=== PATIENT | male | born 1955 | race Caucasian/White ===

== ENCOUNTER 2016-03-24 16:32 | Emergency (ER) | payer BC ==
[2016-03-24 17:11] VITALS: BP 146/88
[2016-03-24] MEDS ORDERED: Ondansetron ODT TAB* 4 MG PO ONE (17:24)
--- NOTE | 2016-03-24 17:46 | UC ---
Abdominal Pain Male HPI - HPI Summary HPI Summary: Pt c/o sudden onset of abdominal discomfort, nausea vomiting, and loose stools X 1 day. reports that last emesis was at 0200 today. Reports loose stools X 5 times - History of Current Complaint Chief Complaint: UCGI Stated Complaint: STOMACH ISSUES Time Seen by Provider: 03/24/16 17:02 Hx Obtained From: Patient Onset/Duration: Sudden Onset Severity Initially: Mild Severity Currently: Mild Location: Diffuse Character: Colicy Aggravating Factor(s):: Food Associated Signs And Symptoms: Positive: Vomiting, Diarrhea - Allergies/Home Medications Allergies/Adverse Reactions: Allergies Allergy/AdvReac Type Severity Reaction Status Date / Time No Known Allergies Allergy Verified 03/24/16 17:07 Home Medications: Home Medications Ibuprofen TAB* [Advil TAB*] 200 mg PO Q4H PRN 03/24/16 [History Confirmed ] PMH/Surg Hx/FS Hx/Imm Hx Previously Healthy: Yes - Surgical History Surgical History: Yes Surgery Procedure, Year, and Place: Right Inguinal Herniorrhaphy, ~ [place] - Family History Known Family History: Positive: Diabetes - Social History Alcohol Use: Daily Alcohol Amount: 2-3 beers daily Substance Use Type: None Smoking Status (MU): Heavy Every Day Tobacco Smoker Type: Cigarettes Amount Used/How Often: 1 PPD Length of Time of Smoking/Using Tobacco: 48 Years Have You Smoked in the Last Year: Yes - Immunization History Most Recent Influenza Vaccination: Not the 2015/2016 Season Review of Systems Constitutional: Chills, Fatigue Skin: Negative Eyes: Negative ENT: Negative Respiratory: Negative Cardiovascular: Negative Gastrointestinal: Abdominal Pain, Vomiting, Diarrhea Genitourinary: Negative Motor: Negative Neurovascular: Negative Musculoskeletal: Negative Neurological: Negative Psychological: Negative All Other Systems Reviewed And Are Negative: Yes Physical Exam Triage Information Reviewed: Yes Appearance: Well-Appearing Vital Signs: Initial Vital Signs Temp 98.5 F 03/24/16 17:03 Pulse 98 03/24/16 17:03 Resp 16 03/24/16 17:03 BP 146/88 03/24/16 17:03 Pulse Ox 97 03/24/16 17:03 Vital Signs Reviewed: Yes Eye Exam: Normal ENT Exam: Other - dry lips Neck exam: Normal Respiratory Exam: Normal Cardiovascular Exam: Normal Abdominal Exam: Normal Bowel Sounds: Positive: Present Musculoskeletal Exam: Normal Neurological Exam: Normal Psychological Exam: Normal Skin Exam: Normal Abd Pain Male Course/Dx - Differential Dx/Clinical Impression Differential Diagnosis/HQI/PQRI: Diverticulitis Provider Diagnoses: gastroenteritis Discharge - Discharge Plan Condition: Stable Disposition: HOME Prescriptions: Ondansetron ODT TAB* [Zofran Odt TAB*] 8 mg PO Q8H PRN #15 tab.odt PRN Reason: Nausea Patient Education Materials: Gastroenteritis (ED) Referrals: Cleopatra Corado MD [Primary Care Provider] -
== END 2016-03-24 17:35 | disposition home or self-care (01) ==
LOC: UCCORT 16:32
DX: K52.9 Noninfective gastroenteritis and colitis, unspecified (principal); F17.210 Nicotine dependence, cigarettes, uncomplicated
CPT/HCPCS: 99212; A9270-GY; G0463

== ENCOUNTER 2017-12-14 13:45 | Emergency (ER) | payer BC ==
[2017-12-14 14:55] VITALS: BP 113/67
[2017-12-14] MEDS ORDERED: Ketorolac INJ* 60 MG/2 ML VIAL IM ONE (15:05)
--- NOTE | 2017-12-14 15:09 | UC ---
Back Pain HPI - HPI Summary HPI Summary: Patient states that Tuesday evening he was lifting a very light chair when he bent over he get a sudden sharp pain across his low back. He notes that the pain sometimes radiates into his thigh. He states he is a history of disc disease and every once in a while he'll get a flare like this. - History of Current Complaint Chief Complaint: UCBackPain Stated Complaint: LOWER BACK COMPLAINT Time Seen by Provider: 12/14/17 14:50 Hx Obtained From: Patient Onset/Duration: Sudden Onset Timing: Constant Pain Intensity: 9 Aggravating Factor(s): Movement Associated Signs And Symptoms: Negative: Fever, Weakness, Numbness, Tingling, Abdominal Pain, Flank Pain, Bladder Incontinence, Bowel Incontinence - Risk Factors AAA Risk Factors: Smoking TAD Risk Factors: Smoking Cauda Equina Risk Factors: Negative - Allergies/Home Medications Allergies/Adverse Reactions: Allergies Allergy/AdvReac Type Severity Reaction Status Date / Time No Known Allergies Allergy Verified 12/14/17 14:47 Home Medications: Home Medications Acetaminophen TAB* [Tylenol TAB*] 650 mg PO Q4H PRN 12/14/17 [History Confirmed 12/14/17] Ibuprofen TAB* [Advil TAB*] 200 mg PO Q6H PRN 12/14/17 [History Confirmed ] PMH/Surg Hx/FS Hx/Imm Hx - Additional Past Medical History Additional PMH: DDD - Surgical History Surgical History: Yes Surgery Procedure, Year, and Place: Right Inguinal Herniorrhaphy, ~2012, [id number]. KNEES ARTHROSCOPY - Family History Known Family History: Positive: Diabetes - Social History Occupation: Employed Full-time Alcohol Use: Daily Alcohol Amount: 4-5 beers daily Substance Use Type: None Smoking Status (MU): Heavy Every Day Tobacco Smoker Type: Cigarettes Amount Used/How Often: 1 PPD Length of Time of Smoking/Using Tobacco: 48 Years Have You Smoked in the Last Year: Yes Household Exposure Type: Cigarettes - Immunization History Most Recent Influenza Vaccination: Not the 2016/2016 Season Vaccination Up to Date: Yes Review of Systems Constitutional: Negative Skin: Negative Eyes: Negative ENT: Negative Respiratory: Negative Cardiovascular: Negative Gastrointestinal: Negative Genitourinary: Negative Motor: Negative Neurovascular: Negative Musculoskeletal: Other: - Low back pain Neurological: Negative Psychological: Negative Is Patient Immunocompromised?: No All Other Systems Reviewed And Are Negative: Yes Physical Exam Triage Information Reviewed: Yes Appearance: Well-Appearing Vital Signs: Initial Vital Signs Temp 98.3 F 12/14/17 14:49 Pulse 94 12/14/17 14:49 Resp 16 12/14/17 14:49 BP 113/67 12/14/17 14:49 Pulse Ox 98 12/14/17 14:49 Vital Signs Reviewed: Yes Eyes: Positive: Conjunctiva Clear ENT: Positive: Normal ENT inspection Neck: Positive: Supple, Nontender, No Lymphadenopathy Respiratory: Positive: Lungs clear, Normal breath sounds Cardiovascular: Positive: RRR, No Murmur Abdomen Description: Positive: Nontender, No Organomegaly, Soft. Negative: Distended, Guarding, Pulsatile Mass Bowel Sounds: Positive: Present Musculoskeletal: Positive: No Edema, Other: - Inspection of the patient's back reveals flattening to the lordotic curve as well as questionable curvature which may be attributed to muscle spasm. Range of motion is limited due to his low back pain. His 5 out of 5 strength and 2+ reflexes 4. He is a slow but steady gait. no saddle anesthesia. He has negative straight leg raises bilaterally. Neurological: Positive: Alert Psychological: Positive: Age Appropriate Behavior Skin Exam: Normal Diagnostics - Radiology No standard instances Radiology Interpretation Completed By: Radiologist - #. Degenerative spondylosis and facet joint osteoarthritis. #. 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 Negative for spondylolisthesis. Back Pain Course/Dx - Course Course Of Treatment: No concern for infection, acute abdomen or cauda equina. Patient has extensive degenerative changes on x-ray and his history supports a lumbar radiculopathy thus we'll treat with muscle relaxer and steroid - Differential Dx/Diagnosis Provider Diagnoses: Acute low back pain. lumbar radiculopathy. degenerative changes spine Discharge - Sign-Out/Discharge Documenting (check all that apply): Patient Departure All imaging exams completed and their final reports reviewed: Yes - Discharge Plan Condition: Stable Disposition: HOME Prescriptions: Cyclobenzaprine TAB* [Flexeril 10 MG TAB*] 10 mg PO TID PRN #10 tab PRN Reason: Spasms - Back methylPREDNISolone [Medrol Dosepak 4 MG*] 0 mg PO .SEE PREETI INSTRUCTION #1 tab Patient Education Materials: Back Pain (ED), Lumbar Radiculopathy (ED) Referrals: [facility] [Outside] - 1 Day Additional Instructions: Call the [facility] physician referral in the a.m. and they will help you to set up an appointment with a primary care provider. Should be seen within the next week. - Billing Disposition and Condition Condition: STABLE Disposition: Home
--- NOTE | 2017-12-14 15:25 | RAD ---
Indication: Low back pain. Chronic. No preceding injury. Radiation to the LEFT leg. Comparison: No relevant prior exams available [place] [facility] [place]. Technique: AP and lateral views lumbar sacral spine. Report: Alignment is anatomic. No cortical disruption or trabecular impaction to indicate a vertebral body fracture. Multilevel degenerative spondylosis with vertebral endplate osteophytosis and predominant mild disc space narrowing. 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 Negative for spondylolisthesis. Facet joint osteoarthritis most prominent at L4-L5 and L5-S1. Unremarkable soft tissue contours. Aortoiliac vascular calcifications. IMPRESSION: #. Degenerative spondylosis and facet joint osteoarthritis. #. 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 Negative for spondylolisthesis.
== END 2017-12-14 16:03 | disposition home or self-care (01) ==
LOC: UCCORT 13:45
DX: M54.16 Radiculopathy, lumbar region (principal); F17.210 Nicotine dependence, cigarettes, uncomplicated
CPT/HCPCS: 72100; 96372; 99212; G0463; J1885

== ENCOUNTER 2018-04-06 13:49 | Emergency (ER) | payer BC ==
[2018-04-06 14:22] VITALS: BP 140/80
--- NOTE | 2018-04-06 15:49 | UC ---
Throat Pain/Nasal Dago HPI - HPI Summary HPI Summary: Started w/ L sided sinus pain and nasal congestion x2 days. Assoc. tooth pain w / this. +post nasal drip and cough. - History of Current Complaint Chief Complaint: UCRespiratory Stated Complaint: SINUSES Time Seen by Provider: 04/06/18 15:15 Hx Obtained From: Patient Pain Intensity: 7 Pain Scale Used: 0-10 Numeric Associated Signs & Symptoms: Negative: Dysphagia, Wheezing - Allergies/Home Medications Allergies/Adverse Reactions: Allergies Allergy/AdvReac Type Severity Reaction Status Date / Time No Known Allergies Allergy Verified 04/06/18 14:22 PMH/Surg Hx/FS Hx/Imm Hx Previously Healthy: Yes Respiratory History: Other - smokers cough - Surgical History Surgical History: Yes Surgery Procedure, Year, and Place: Right Inguinal Herniorrhaphy, ~2012, . KNEES ARTHROSCOPY - Family History Known Family History: Positive: Diabetes - Social History Alcohol Use: Daily Alcohol Amount: 4-5 beers daily Substance Use Type: None Smoking Status (MU): Heavy Every Day Tobacco Smoker Type: Cigarettes Amount Used/How Often: 1 PPD Length of Time of Smoking/Using Tobacco: 48 Years Have You Smoked in the Last Year: Yes Household Exposure Type: Cigarettes - Immunization History Most Recent Influenza Vaccination: Not the 2015/2016 Season Vaccination Up to Date: Yes Review of Systems All Other Systems Reviewed And Are Negative: Yes Constitutional: Negative: Fever, Chills Skin: Negative: Rash ENT: Positive: Nasal Discharge, Sinus Congestion, Sinus Pain/Tenderness. Negative: Sore Throat, Ear Ache Respiratory: Negative: Shortness Of Breath, Cough Cardiovascular: Positive: Negative Physical Exam Triage Information Reviewed: Yes Appearance: Well-Appearing Vital Signs: Initial Vital Signs Temp 98.9 F 04/06/18 14:18 Pulse 98 04/06/18 14:18 Resp 18 04/06/18 14:18 BP 140/80 04/06/18 14:18 Pulse Ox 97 04/06/18 14:18 Vital Signs Reviewed: Yes ENT: Positive: Pharynx normal, Nasal congestion, TMs normal, Sinus tenderness - L side only Dental: Positive: Other: - dentures Neck: Positive: No Lymphadenopathy Respiratory Exam: Normal Cardiovascular Exam: Normal Throat Pain/Nasal Course/Dx - Course Assessment/Plan: L sided sinus pain/sinusitis. Exam remarkable for sinus tenderness. will cover for bacterial source. - Differential Dx/Diagnosis Differential Diagnosis/HQI/PQRI: Sinusitis, URI Provider Diagnosis: Sinusitis Discharge - Sign-Out/Discharge Documenting (check all that apply): Patient Departure All imaging exams completed and their final reports reviewed: No Studies - Discharge Plan Condition: Good Disposition: HOME Prescriptions: Amoxicillin/Clavulanate TAB* [Augmentin TAB 500 mg*] 500 mg PO BID 10 Days #20 tab Patient Education Materials: Sinusitis (ED) Referrals: No Primary Care Phys,NOPCP [Primary Care Provider] - Additional Instructions: Please find a primary care doctor - Billing Disposition and Condition Condition: GOOD Disposition: Home
== END 2018-04-06 16:05 | disposition home or self-care (01) ==
LOC: UCCORT 13:49
DX: J32.9 Chronic sinusitis, unspecified (principal); F17.210 Nicotine dependence, cigarettes, uncomplicated
CPT/HCPCS: 99212; G0463